=== PATIENT | male | born 1940 | race Caucasian/White ===

== ENCOUNTER 2017-02-06 01:34 | Emergency (ER) | payer OTHER ==
[~2017-02-06] VITALS: Ht 170.2 cm; Wt 70.8 kg
[~2017-02-06 01:34] MED LIST: ADULT LOW DOSE81 M1 PO; BACLOFEN10 MG PO; DUONEB 2.5-0.5 M3 ML IPPB; ERGOCALCIF50000 UNIT PO; FENTANYL1 EAC5 TD; GLIPIZIDE5 MG PO; IRON325 MG PO; LEVOTHYROXINE100 MCG PO; LEVOTHYROXINE150 MCG PO; LO-DOSE ASPIRIN81 M2 PO; LOVENOX30 MG/0.3 SC; METFORMIN HCL1000 MG PO; METFORMIN HCL500 MG PO; METOPROLOL TART25 MG PO; NORCO 5/3251 TABLET PO; OXAYDO5 MG PO; SIMVASTATIN40 M1 PO; SIMVASTATIN40 MG PO; TRADJENTA5 MG PO
[2017-02-06 01:39] VITALS: BP 172/102
== END 2017-02-06 02:45 | disposition left against medical advice (07) ==
LOC: EME 01:34
DX: S61.412A Laceration without foreign body of left hand, initial encounter (principal); S60.222A Contusion of left hand, initial encounter; W23.0XXA Caught, crushed, jammed, or pinched between moving objects, initial encounter; Z53.21 Procedure and treatment not carried out due to patient leaving prior to being seen by health care provider